=== PATIENT | male | born 1960 | race African-American/Black ===

== ENCOUNTER 2018-07-28 18:32 | Inpatient (IN) | payer BC, OTHER ==
[~2018-07-28] VITALS: Ht 180.3 cm; Wt 103.6 kg
[~2018-07-28 18:32] MED LIST: ALBU8.5H8 INH
--- NOTE | 2018-07-28 18:40 | NUR ---
PT BIBSELF C/O DIZZINESS, PT WAS W/C FROM PARKING TO ROOM; PT AAOX4, PT ON MONITOR ,VSSAURORAP ENDING MD CONRAD
[2018-07-28] MEDS ORDERED: ASPIRIN 325 MG TABLET ONE (18:44)
[2018-07-28 18:50] LABS: BASOPHILS # (AUTO) 0.1 /CMM (0.0-0.2); BASOPHILS % (AUTO) 0.8 % (0.0-2.0); EOSINOPHILS % (AUTO) 0.8 % (0.0-6.0); HEMATOCRIT 46 % (39-51); HEMOGLOBIN 15.8 g/dL (13.5-17.5); LYMPHOCYTES # (AUTO) 3.5 /CMM (0.8-4.8); LYMPHOCYTES % (AUTO) 45.1 % (20.0-44.0); MEAN CORPUSCULAR HGB CONC 35 g/dl (31.0-36.0); MEAN CORPUSCULAR VOLUME 88 fL (80-96); MONOCYTES # (AUTO) 0.6 /CMM (0.1-1.30); MONOCYTES % (AUTO) 7.6 % (2.0-12.0); NEUTROPHILS # (AUTO) 3.5 /CMM (1.8-8.9); NEUTROPHILS % (AUTO) 45.7 % (43.0-81.0); PLATELET COUNT (AUTO) 257 /CMM (150-450); RED BLOOD CELL COUNT(AUTO) 5.17 MIL/uL (4.5-6.0); WHITE BLOOD COUNT (AUTO) 7.7 K/uL (4.3-11.0)
[2018-07-28 18:55] LABS: CREATININE 1.8 mg/dL (0.6-1.3); POTASSIUM 3.8 mmol/L (3.5-5.1)
[2018-07-28] MEDS ORDERED: IV NS 0.9% 1,000 ML BAG IV ONE (19:00)
[2018-07-28] MEDS ORDERED: ASPIRIN 325 MG TABLET PO ONE (19:00)
[2018-07-28 19:01] LABS: ALBUMIN 3.6 g/dL (3.4-5.0); BILIRUBIN,DIRECT 0.2 mg/dL (0.0-0.2); BILIRUBIN,TOTAL 0.7 mg/dL (0.2-1.0); TOTAL PROTEIN, SERUM 7.3 g/dL (6.4-8.2)
[2018-07-28] MEDS ORDERED: ENAL10TA PO (19:08)
[2018-07-28] MEDS ORDERED: ASPI-1169 PO (19:08)
[2018-07-28] MEDS ORDERED: PANT40TA4 PO (19:08)
[2018-07-28] MEDS ORDERED: AMLO10TA7 PO (19:08)
[2018-07-28] MEDS ORDERED: ONDANSETRON HCL/PF 4 MG/2 ML VIAL IVP PRN (21:00)
[2018-07-28] MEDS ORDERED: HYDROCODONE/APAP 5/325MG 1 EACH TABLET PO PRN (21:00)
[2018-07-28] MEDS ORDERED: Z GUARD REMEDY 2 OZ OINT TP PRN (21:00)
[2018-07-28] MEDS ORDERED: ACETAMINOPHEN 325 MG TABLET PO PRN (21:00)
[2018-07-28] MEDS ORDERED: ZOLPIDEM TARTRATE 5 MG TABLET PO PRN (21:00)
[2018-07-28] MEDS ORDERED: MAG HYDROX/AL HYDROX/SIMETH 30 ML UDC PO PRN (21:00)
[2018-07-28] MEDS ORDERED: MAGNESIUM HYDROXIDE 30 ML UDC PO PRN (21:00)
--- NOTE | 2018-07-28 22:29 | NUR ---
REPORT GIVEN TO STARR PHILIP FOR TARA; PT WILL BE TRANSPORTED TO 3RD FLOOR VIA [facility]
--- NOTE | 2018-07-28 22:30 | NUR ---
TELE/RN OPENING NOTES PT RECEIVED FROM ER VIA [facility]. ON ROOM AIR, BREATHING EVEN AND UNLABORED. DENIES SOB, DIZZINESS AND CP. PT WANTS TO USE RESTROOM TO CLEAN UP. REFUSED STAFF ASSISTANCE DESPITE HAVING PREVIOUS EPISODE OF DIZZINESS IN THE PARKING LOT. STAYED NEAR RESTROOM, PT AWARE TO CALL FOR ASSISTANCE
[2018-07-28 23:00] VITALS: BP 109/67
--- NOTE | 2018-07-28 23:30 | NUR ---
TELE/RN NOTES PT FINISHED CLEANING UP. HAD A BM AND WASHED CLOTHES IN THE SINK. ESCORTED TO BED. REMAINS ON ROOM AIR, BREATHING EVEN AND UNLABORED. IN NO ACUTE DISTRESS. DENIES SOB, CP AND/OR DIZZINESS. IV TO LAC AND RFA PATENT AND INTACT. HOWEVER IV TO LAC REMOVED DUE TO IT BEING PAINFUL. ORIENTED PT TO ROOM AND CALL LIGHT. HOB ELEVATED. BILAT. UPPER SIDE RAILS IN PLACE. PLACED ON TELE MONITOR SHOWING SR WITH PVC TRIGEMINY, HR 71. BELONGINGS LIST COMPLETED. BED IN LOW/LOCKED POSITION WITH CALL LIGHT IN REACH. WILL CONTINUE TO MONITOR
[2018-07-28] MEDS: IV NS 0.9% 1,000 ML IV PRN (23:48)
[2018-07-29 04:59] VITALS: BP 100/53
--- NOTE | 2018-07-29 06:40 | NUR ---
MS/RN CLOSING NOTES PT ASLEEP, RESTING COMFORTABLY IN BED. RESPONSIVE TO NAME. ON ROOM AIR, BREATHING EVEN AND UNLABORED. DENIES SOB AND CP. IN NO ACUTE DISTRESS. ON TELE MONITOR SHOWING SR WITH PVC'S, HR 68. ALL NEEDS MET. IV TO RFA PATENT AND INTACT RUNNING IVF ORDERED. UNABLE TO COLLECT URINE SPECIMEN. BED IN LOW/LOCKED POSITION WITH CALL LIGHT IN REACH. BILAT. UPPER SIDE RAILS IN PLACE. WILL ENDORSE TO DAY SHIFT RN TARA.
[2018-07-29 06:58] LABS: BASOPHILS % (AUTO) 0.5 % (0.0-2.0); EOSINOPHILS % (AUTO) 0.9 % (0.0-6.0); HEMATOCRIT 40 % (39-51); LYMPHOCYTES # (AUTO) 2.2 /CMM (0.8-4.8); LYMPHOCYTES % (AUTO) 35.9 % (20.0-44.0); MEAN CORPUSCULAR HGB CONC 35 g/dl (31.0-36.0); MEAN CORPUSCULAR VOLUME 87 fL (80-96); MONOCYTES # (AUTO) 0.5 /CMM (0.1-1.30); MONOCYTES % (AUTO) 8.1 % (2.0-12.0); NEUTROPHILS # (AUTO) 3.3 /CMM (1.8-8.9); NEUTROPHILS % (AUTO) 54.6 % (43.0-81.0); PLATELET COUNT (AUTO) 194 /CMM (150-450); RED BLOOD CELL COUNT(AUTO) 4.57 MIL/uL (4.5-6.0)
[2018-07-29 07:05] LABS: CALCIUM, SERUM 8.2 mg/dL (8.5-10.1); CREATININE 1.1 mg/dL (0.6-1.3); MAGNESIUM 1.9 mg/dL (1.8-2.4)
[2018-07-29 07:09] LABS: THYROID STIMULATING HORMONE 0.335 uIU/mL (0.358-3.74)
[2018-07-29] MEDS: PANTOPRAZOLE 40 MG TABLET.DR PO SCH (07:30)
--- NOTE | 2018-07-29 07:38 | NUR ---
MEDICAL RECORDS ASSISTANT OPENING NOTE RECEIVED REPORT FROM WIRE FENCE BUILDER RN THAT PATIENT WAS ADMITTED FROM ER FOLLOWING EPISODE OF CHEST PAIN AND DIZZINESS. PATIENT OBSERVED IN BED AND APPEARS TO BE RESTING COMFORTABLY. SURVEY SUPERVISOR WITH PVC AND TRIGEMINY . NO SIGNS OF DISTRESS NOTED. PATIENT KEPT NPO PENDING CARDIAC PROCEDURES. RIGHT FA PIV NS @75 CC. Addendum: 07/29/18 at 0754 by PROSPER YO RN MEDICAL RECORDS ASSISTANT OPENING NOTE RECEIVED REPORT FROM WIRE FENCE BUILDER RN THAT PATIENT WAS ADMITTED FROM ER FOLLOWING EPISODE OF CHEST PAIN AND DIZZINESS. PATIENT OBSERVED IN BED AND APPEARS TO BE RESTING COMFORTABLY. BREATHING NOTED TO BE EVEN AND UNLABORED. SURVEY SUPERVISOR WITH PVC AND TRIGEMINY. NO SIGNS OF DISTRESS NOTED. PATIENT KEPT NPO PENDING CARDIAC LAB PROCEDURES. RIGHT FA PIV WITH NS INFUSING @75 CC/HR. IV SIGHT KEPT CLEAN DRY AND INTACT WITH NO REDNESS OR SWELLING. CALL LIGHT AND BELONGINGS KEPT WITHIN REACH OF PATIENT.
[2018-07-29 08:00] VITALS: BP 109/74
[2018-07-29] MEDS: ASPIRIN 81 MG TAB.CHEW PO SCH (08:56)
--- NOTE | 2018-07-29 13:30 | NUR ---
MS RN NOTE PER PT HE HAD HIS STRESS TEST AT [facility]. CALLED HOSPITAL BUT MEDICAL RECORDS OFFICE IS ONLY OPEN MONDAY-MONDAY. WILL ENDORSE THAT DAY SHIFT NURSE CAN FOLLOW UP AND CALL TOMORROW DURING BUSINESS HOURS TO OBTAINED RESULTS REQUESTED BY
--- NOTE | 2018-07-29 14:30 | NUR ---
MS RN NOTE PATIENT WAS FOUND WITH RIGHT FOREARM 18 GAUGE WHICH WAS REPORTED BY PT TO BE PAINFUL. REMOVED WITH CATHETER TIP INTACT AND NEW IV INSERTED AT RFA #22 ABOVE PREVIOUS SITE. IV PATENT, CLEAN, DRY AND INTACT. PT TOLERATED PROCEDURE WELL.
[2018-07-29 16:00] VITALS: BP 111/59
[2018-07-29] MEDS: IV NS 0.9% 1,000 ML IV PRN (18:19)
--- NOTE | 2018-07-29 18:50 | NUR ---
DUST BRUSH ASSEMBLER CLOSING NOTE PATIENT IN BED, RESTING WITH EYES CLOSED, EASILY ABUSABLE. PT A/OX4, NO INCIDENTS OF CHEST PAIN FOR DURATION OF SHIFT. THROUGHOUT DURATION OF SHIFT, DENIES ANY SHORTNESS OF BREATH, N/V. NO SIGNS OF DISTRESS NOTED. BREATHING EVEN AND UNLABORED ON RA. RIGHT FA 22# PIV NS @75 ML/HR. PATIENT ASSISTED WITH ADLS AND ALL NEEDS ATTENDED TO. CALL LIGHT AND BELONGINGS KEPT WITHIN REACH. WILL ENDORSE TO STOCK MANAGER RN FOR CONTINUITY OF CARE.
--- NOTE | 2018-07-29 19:05 | NUR ---
MS RN NOTES RECEIVED PT IN BED AWAKE AND ABLE TO MAKE NEEDS KNOWN. PT A/O X4. RESPIRATIONS EVEN AND UNLABORED WITH NO SS/ OF ACUTE DISTRESS OR SOB NOTED. NO COMPLAINTS OF PAIN AT THIS TIME. SAFETY MEASURES IN PLACE WITH BED IN LOWEST LOCKED POSITION WITH SIDE RAILS UP X2. PT WITH RFA @22G RUNNING NS @75ML/HR, NO S/S OF INFILTRATION OR REDNESS NOTED. CALL LIGHT WITHIN REACH. WILL CONTINUE TO MONITOR.
[2018-07-29 20:27] VITALS: BP 137/81
--- NOTE | 2018-07-29 21:25 | NUR ---
RECEIVED REPORT FORM JOSEPHINE PHILIP, PT REMAINS STABLE. SLEEPING EASILY AROUSED TO TOUCH BREATHING EVEN AND UNLABORED, WILL CONTINUE TO MONITOR FREQUENTLY
--- NOTE | 2018-07-30 06:13 | NUR ---
RN MS CLOSING NOTES PT REMAINS IN BED, SLEEPING, EASILY AROUSED TO NAME CALL. BREATHING EVEN AND UNLABORED ON ROOM AIR. IN NO APPARENT PAIN OR DISCOMFORT AT THE MOMENT. IV ACCESS ON THE L FA20G. BED IN LOWEST LOCKED POSITION, CALL LIGHT WITHIN REACH AT ALL TIMES, WILL ENDORSE TO DAY NURSE FOR TARA.
--- NOTE | 2018-07-30 07:53 | NUR ---
RN MS OPENING NOTES Patient received on room air, no sob noted. Patient denies pain at this time. Told patient about the need for a urine sample, patient stated that he will do it when he can. Patient's bed at the lowest setting, call light within reach.
[2018-07-30] MEDS: ASPIRIN 81 MG TAB.CHEW PO SCH (07:59)
[2018-07-30] MEDS: PANTOPRAZOLE 40 MG TABLET.DR PO SCH (07:59)
[2018-07-30 08:00] VITALS: BP 137/78
[2018-07-30 10:03] LABS: CALCIUM, SERUM 8.7 mg/dL (8.5-10.1); CREATININE 0.9 mg/dL (0.6-1.3); POTASSIUM 3.8 mmol/L (3.5-5.1)
--- NOTE | 2018-07-30 10:25 | NUR ---
RN MS NOTES Contacted [facility] in [place], [place]. where patient stated that he had a stress test done. The facility stated that they do not have his information, nor that they had him as a patient, nor that they have any records of him. Charge nurse aware of the situation.
--- NOTE | 2018-07-30 14:05 | NUR ---
RN MS DISCHARGE NOTES Patient discharged around 1400. no sob noted, no pain at this time, vital signs stable. IV removed with no bleeding and swelling noted. Patient's personal belongings with patient at the time of discharge. Cellphone, clothes, wallet, and credit cards all with him. Patient's paperwork given to him and signed, discharge paper given as well. Patient's question and concerns were answered.
== END 2018-07-30 14:05 | disposition home or self-care (01) | DRG 203 ==
LOC: ER 18:34 → TELE 21:55 → MED 07-29 09:49
PROVIDERS: ADMIT Hospitalist; ATTEND Nurse Practitioner Acute Care
DX: M94.0 Chondrocostal junction syndrome [Tietze] (principal); N17.0 Acute kidney failure with tubular necrosis; I95.9 Hypotension, unspecified; E86.0 Dehydration; K21.9 Gastro-esophageal reflux disease without esophagitis; I10 Essential (primary) hypertension; S31.109S Unspecified open wound of abdominal wall, unspecified quadrant without penetration into peritoneal cavity, sequela; W34.00XS Accidental discharge from unspecified firearms or gun, sequela; Z98.890 Other specified postprocedural states; Z88.5 Allergy status to narcotic agent; F17.200 Nicotine dependence, unspecified, uncomplicated; Z79.899 Other long term (current) drug therapy; Z79.82 Long term (current) use of aspirin; M19.90 Unspecified osteoarthritis, unspecified site; Z82.49 Family history of ischemic heart disease and other diseases of the circulatory system; E66.9 Obesity, unspecified; Z68.31 Body mass index [BMI] 31.0-31.9, adult; G47.33 Obstructive sleep apnea (adult) (pediatric)
CPT/HCPCS: 36415; 71045-TC; 80048-TC; 80061-TC; 80076-TC; 82962-TC; 83690-TC; 83735-TC; 84100-TC; 84443-TC; 84484-TC; 85025-TC; 87081-TC; 93307-TC; G0378; J2405; J7030